=== PATIENT | female | born 1955 | race Caucasian/White ===

== ENCOUNTER → 2023-08-19 09:40 | Outpatient (REF) | payer MEDICARE, OTHER, SELFPAY ==
[2023-08-19 10:47] LABS: % Basophils 0.8 % (0-2); % Eosinophils 2.1 % (0-6); % Immature Granulocytes 0.2 % (0-0.5); % Lymphocytes 37.4 % (20.5-51.1); % Monocytes 7.4 % (1.7-9.3); % Neutrophils 52.1 % (42.2-75.2); Absolute Basophils 0.1 10^3/uL (0-0.2); Absolute Eosinophils 0.1 10^3/uL (0-0.7); Absolute Lymphocytes 2.5 10^3/uL (1.2-3.4); Absolute Monocytes 0.5 10^3/uL (0.1-0.6); Absolute Neutrophils 3.5 10^3/uL (1.4-6.5); Hematocrit 39.5 % (37.0-47.0); Hemoglobin 13.6 g/dL (12.0-16.0); Mean Corp Hgb Conc. 34.4 g/dL (33.0-37.0); Mean Corpuscular Hgb 28.8 pg (27.0-31.0); Mean Corpuscular Volume 83.5 fL (81.0-99.0); Mean Platelet Volume 8.7 fL (7.4-10.4); Nucleated Red Blood Cells % 0 %; Platelet Count 291 10^3/uL (130-400); Red Blood Cell Count 4.73 10^6/uL (4.20-5.40); White Blood Cell Count 6.7 10^3/uL (4.8-10.8)
[2023-08-19 11:28] LABS: ALT (SGPT) 16 U/L (0-35); AST (SGOT) 24 U/L (14-36); Albumin 4.3 g/dl (3.5-5.0); Alkaline Phosphatase 91 U/L (38-126); Blood Urea Nitrogen 13 mg/dl (7-17); Calcium 9.8 mg/dl (8.4-10.2); Carbon Dioxide 26 mmol/L (22-30); Chloride 105 mmol/L (98-107); Glucose 96 mg/dl (70-99); Potassium 4.3 mmol/L (3.5-5.1); Sodium 136 mmol/L (135-145); Total Bilirubin 1.2 mg/dl (0.2-1.3); eGFR > 60.00
[2023-08-19 11:38] LABS: Free T4 1.33 ng/dl (0.78-2.19)
[2023-08-19 11:52] LABS: TSH 0.79 uIU/ml (0.47-4.68)
== END ==
LOC: REG 09:40
PROVIDERS: ATTENDING PHYSICIAN Physician Assistant Medical; FAMILY PHYSICIAN Family Medicine
DX: R00.0 Tachycardia, unspecified (principal); R00.2 Palpitations; R53.83 Other fatigue
CPT/HCPCS: 36415; 80053; 84439; 84443; 85025

== ENCOUNTER → 2023-09-01 08:47 | Outpatient (REF) | payer MEDICARE, OTHER, SELFPAY | LOC: HWRCS 08:47 | PROVIDERS: ATTENDING PHYSICIAN Physician Assistant Medical; FAMILY PHYSICIAN Family Medicine | DX: R00.0 Tachycardia, unspecified (principal); R00.2 Palpitations | CPT/HCPCS: 93306 ==

== ENCOUNTER → 2023-09-22 08:38 | Outpatient (REF) | payer MEDICARE, OTHER, SELFPAY ==
[2023-09-22 09:44] LABS: Blood Urea Nitrogen 18 mg/dl (7-17); Carbon Dioxide 27 mmol/L (22-30); Chloride 104 mmol/L (98-107); Glucose 98 mg/dl (70-99); Potassium 4.6 mmol/L (3.5-5.1); Sodium 138 mmol/L (135-145); eGFR > 60.00
== END ==
LOC: REG 08:38
PROVIDERS: ATTENDING PHYSICIAN Nurse Practitioner; FAMILY PHYSICIAN Family Medicine
DX: M79.604 Pain in right leg (principal); M79.605 Pain in left leg; I10 Essential (primary) hypertension
CPT/HCPCS: 36415; 80048

== ENCOUNTER → 2023-10-06 10:48 | Outpatient (REF) | payer MEDICARE, OTHER, SELFPAY | LOC: RAD 10:48 | PROVIDERS: ATTENDING PHYSICIAN Nurse Practitioner; FAMILY PHYSICIAN Family Medicine | DX: M79.604 Pain in right leg (principal); M79.605 Pain in left leg; I10 Essential (primary) hypertension | CPT/HCPCS: 93922; 93925 ==

== ENCOUNTER → 2023-10-24 15:45 | Outpatient (REF) | payer MEDICARE, OTHER, SELFPAY | LOC: WDC 15:45 | PROVIDERS: ATTENDING PHYSICIAN Family Medicine | DX: Z12.31 Encounter for screening mammogram for malignant neoplasm of breast (principal) | CPT/HCPCS: 77063; 77067 ==

== ENCOUNTER 2023-12-09 18:08 | Emergency (ER) | payer MEDICARE, OTHER, SELFPAY ==
[2023-12-09] VITALS (7 sets, daily range): BP systolic 106–122; BP diastolic 60–73; PULSE 85–96; BMI 27.4
--- NOTE | 2023-12-09 18:26 | ED.GENMED ---
History of Present Illness
General
Chief Complaint: Fainting/Passed Out
Source: patient
Exam Limitations: none
Time Seen by Provider: 12/09/23 18:13
Travel History
Have you had any contact with someone who has COVID-19?: No
Do you have any symptoms of coronavirus? Fever > 100 degrees, chills, cough, shortness of breath, sore throat, loss of taste or smell, muscle aches, or headache?: No
History of Present Illness
History of Present Illness:
This is a 68 year old female that comes in by ambulance with c/o syncope. States that yesterday she forgot to take her medication. State that she went to an Estate sale with her friend. States that she only had coffee. States that she had a bagel
later and she was dropped off at home. states that she watched TV and then went to her Friends house later that night and stayed over night. States that she eat a burger and they decided to take their BP. States that this was around 7-8pm. States
that she her BP was elevated so she took her Lisinopril 20mg. States that she also had two 7-7 drinks. States that she went to bed at 11:30pm. Then today she was at a birthday republican and she was sitting on a bench outside when she started to not feel
well and passed out. States that her sister was right next to her Sister so she did not fall. States that she just felt weak. States that she did have slight chest pressure, she did vomit, slight headache and lightheaded. States that she did have a
little abd discomfort earlier. Denies any fever, chills, SOB, nausea, diarrhea. urinary burning.
Past History
Past History
ED Past Medical History: Cancer (Ovarian cancer), GERD, HTN, Hypercholesterolemia and Other (Barretts esophagus, Colitis, Diverticulosis, Emphysema)
ED Past Surgical History: Appendectomy and Gynecological (Hysterectomy, oophorectomy, and resection of ovarian tumor,)
Social History
Tobacco: Smoker
Alcohol: Occasional
Drug: None
Personal:
Living: alone
Review of Systems
Review of Systems
All Other Systems: ROS reviewed and negative except as documented in HPI and ROS
Constitutional: Reports no symptoms; Denies fever or chills
EENT: Reports no symptoms
Respiratory: Denies cough or trouble breathing
Cardiac: Reports chest pain
ABD/GI: Reports abdominal pain and vomiting; Denies nausea or diarrhea
: Reports no symptoms; Denies dysuria, frequency or urgency
Musculoskeletal: Reports no symptoms
Skin: Reports no symptoms
Neurological: Reports headache (light), weakness and other (Lightheaded)
Psychiatric: Reports no symptoms
Phy Exam
General Physical Exam
General Presentation: no apparent distress
General age: appears stated age
General Skin: warm and dry
General Habitus: normal
General Mental: alert
General Hydration: dry mucous membranes
ENT Exam
ENT Exam: TM's normal, pharynx normal and neck supple
Eye Exam
Eye Exam: EOMI
Cardiovascular Exam
Cardiovascular Exam: regular rate/rhythm, no edema, no murmur and normal peripheral pulses
Pulmonary Exam
Pulmonary Exam: lungs clear, no respiratory distress, no rales, chest non tender, no crackles, no rhonchi, no wheezing and no cough
Gastrointestinal Exam
Gastrointestinal Exam: normal bowel sounds, non tender, soft, no organomegaly, no pulsatile mass and non distended
Musculoskeletal Exam
Musculoskeletal Exam: full ROM and no edema
Skin Exam
Skin Exam: normal color, warm/dry, no rash and no petechia
Psychiatric Exam
Psychiatric Exam: normal mood/affect
Course
Orders/Labs/Results
Orders:
Orders
12/09/23 18:15
Electrocardiogram (*1) Urgent
Reason for Study: Syncope
EKG- Treatment ONCE
12/09/23 18:23
Complete Blood Count/With Diff Urgent
Comprehensive Metabolic Panel Urgent
Troponin I Urgent
12/09/23 18:25
Orthostatic VS- Treatment ONCE
0.9% Sodium Chloride 1000 ml [Nss] 1,000 ml IV BOLUS
CR Chest - 2 Views Urgent
Comment:
Reason For Exam: Chest pain syncope
12/09/23 18:26
CT Head W/o Iv Contrast Urgent
Comment:
Reason For Exam: weakness, headache
12/09/23 20:12
Electrocardiogram (*1) Urgent
Reason for Study: Syncope
Other Reason for Exam: Repeat with Troponin
EKG- Treatment ONCE
12/09/23 21:22
Troponin I Urgent
Urinalysis Reflex To Culture Urgent
Date Specimen was Collected: 12/09/23
Time Specimen was Collected: 21:13
Urine Microscopic Reflex Cult Urgent
Urine Culture Urgent
NINFA Source: U
Specimen Description:
Date Specimen was Collected: 12/09/23
Time Specimen was Collected: 21:13
Abnormal Lab Results
12/09/23 12/09/23
18:23 21:22
WBC 11.3 H 10^3/uL
(4.8-10.8)
Absolute Neuts (auto) 7.9 H 10^3/uL
(1.4-6.5)
Absolute Monos (auto) 0.8 H 10^3/uL
(0.1-0.6)
Carbon Dioxide 21 L mmol/L
(22-30)
Glucose 109 H mg/dl
(70-99)
Total Bilirubin 1.4 H mg/dl
(0.2-1.3)
Leukocyte Esterase Rfl 2+ A
(Negative)
Urine Bacteria (Reflex) Few A
(Negative)
12/09/23 18:23
12/09/23 18:23
WBC very slightly elevated. Glucose nonfasting. Total isabel very slightly elevated. Troponin <0.012
Second Troponin <0.012
Vital Signs
Initial and Last Documented VS:
Initial Vital Signs
Temp Pulse Resp BP Pulse Ox
97.6 F 74 17 106/73 100
12/09/23 18:12 12/09/23 18:12 12/09/23 18:12 12/09/23 18:12 12/09/23 18:12
Last Documented Vital Signs
Temp Pulse Resp BP Pulse Ox
97.6 F 84 14 109/70 100
12/09/23 18:12 12/09/23 21:15 12/09/23 21:15 12/09/23 21:00 12/09/23 18:16
MDM/Problems Addressed
Differential Diagnosis Includes:
Dehydration, Coronary syndrome,
MDM/Problems Addressed:
This is a 68 year old female that comes in with c/o syncope. States that she was outside at a republican and sitting on a bench when she passed out.
will check labs, CT head, Give IV fluids, Orthostatics.
Repeat ECG: rate 86, NSR, Normal axis. Normal QRS, negative for ischemia. Checked by Dr. Serrano.
Back into see patient.Explained that her Second Troponin was also negative. This was most likely some dehydrated and sitting out side. Your BP may have also dropped to low and cause Syncope. Please increase your water intake to 8-8oz glasses daily.
Follow up with the Family doctor. Return with any concerns.
Chronic conditions affecting care:
NA
Acute Exacerbation and/or Progression of Chronic Illness:
NA
*Radiology
Radiology exam reviewed: preliminary read by ED provider (Chest- negative for active disease. ) and radiology read reviewed (CT head-No acute intracranial abnormality. )
*Pulse Oximetry
Patient hypoxic: no
*EKG
Interpreted by ED Provider?: Yes
Heart Rate: 74
Rhythm: sinus
[place]: normal axis
Interval: normal interval
QRS Pattern: normal QRS
Ischemia: no ischemia (Checked by )
*Route Sales Trainee Interpretation
Rate: normal
Heart Rate: 74
Rhythm: sinus
*Critical Care Note
Total Time (30-74mins, 75-104mins- exclusive of procedures): Not Applicable
ED Attending Note
-
Portions of this chart may have been created with voice recognition software.� Occasional wrong word or��sound alike� substitutions may have occurred due to the inherent limitations of voice recognition software.
Discharge Plan
Departure
Patient Disposition: Home (Routine Discharge)
Date of Disposition: 12/09/23
Time of Disposition: 22:25
Patient with high blood pressure during this ER visit?: No
Condition: Good
Covid-19: Not Applicable
Discharge Problem:
Syncope
Instructions: Syncope (Fainting) (DC), Dehydration, Adult ED
Prescriptions:
No Action
pantoprazole 40 MG tablet,delayed release (DR/EC)
40 mg PO DAILY
lisinopril 10 MG tablet
20 mg PO DAILY
magnesium oxide 500 MG capsule
400 mg PO DAILY
cholecalciferol (vitamin D3) 2,000 UNITS tablet
50,000 units PO DAILY
Probiotic 1 EACH capsule
1 ea PO DAILY
cyclobenzaprine 10 mg tablet
10 mg PO TID PRN (Reason: muscle spasms)
atorvastatin 20 mg tablet
20 mg PO DAILY
Referrals:
UNKNOWN - PT DOES,NOT KNOW [Unknown Provider] -
Activity Restrictions/Additional Instructions:
As discussed, your both Troponin and ECG are normal. Your CT of the head is normal along with your chest x-ray. This may have been a combination of Dehydration and your BP getting to low. Please increase your water intake to 8-8oz glasses daily.
Follow up with the family doctor for recheck. IF YOU HAVE ANY OTHER CONCERNS PLEASE RETURN TO THE EMERGENCY ROOM.
Interventions
Interventions:
*Risk Screen - Suicide Last Done: 12/09/23 18:16
*General Assessment Last Done: 12/09/23 18:16
*Neglect/Abuse Screening Last Done: 12/09/23 18:16
ED- Fall Risk Assessment Last Done: 12/09/23 18:16
*ED COVID-19 Vaccine History Last Done: 12/09/23 18:14
ED- Cardiac Assessment Last Done: 12/09/23 18:16
ED- Neurological Assessment Last Done: 12/09/23 18:16
Discharge Date and Time
Print Language: KYRGYZ
[2023-12-09] MEDS: NSS 1000 IV (18:32)
[2023-12-09 18:41] LABS: % Basophils 0.2 % (0-2); % Eosinophils 0.4 % (0-6); % Immature Granulocytes 0.3 % (0-0.5); % Lymphocytes 21.7 % (20.5-51.1); % Monocytes 7.3 % (1.7-9.3); % Neutrophils 70.1 % (42.2-75.2); Absolute Eosinophils 0.1 10^3/uL (0-0.7); Absolute Lymphocytes 2.5 10^3/uL (1.2-3.4); Absolute Monocytes 0.8 10^3/uL (0.1-0.6); Absolute Neutrophils 7.9 10^3/uL (1.4-6.5); Hematocrit 37.8 % (37.0-47.0); Hemoglobin 13.4 g/dL (12.0-16.0); Mean Corp Hgb Conc. 35.4 g/dL (33.0-37.0); Mean Corpuscular Volume 81.8 fL (81.0-99.0); Mean Platelet Volume 8.7 fL (7.4-10.4); Nucleated Red Blood Cells % 0 %; Platelet Count 291 10^3/uL (130-400); Red Blood Cell Count 4.62 10^6/uL (4.20-5.40); Red Cell Dist. Width 13.3 % (11.5-14.5); White Blood Cell Count 11.3 10^3/uL (4.8-10.8)
[2023-12-09 18:58] LABS: ALT (SGPT) 13 U/L (0-35); AST (SGOT) 21 U/L (14-36); Albumin 3.9 g/dl (3.5-5.0); Alkaline Phosphatase 86 U/L (38-126); Blood Urea Nitrogen 15 mg/dl (7-17); Carbon Dioxide 21 mmol/L (22-30); Chloride 105 mmol/L (98-107); Estimated Creatinine Clearance 46 ml/min; Glucose 109 mg/dl (70-99); Potassium 3.8 mmol/L (3.5-5.1); Sodium 136 mmol/L (135-145); Total Bilirubin 1.4 mg/dl (0.2-1.3); Total Protein 6.4 g/dl (6.3-8.2); eGFR > 60.00
[2023-12-09 19:09] LABS: Troponin I < 0.012 ng/ml
[2023-12-09 21:37] LABS: Urine Albumin Negative (Neg - Trace); Urine Bilirubin Negative (Negative); Urine Character Clear (Clear); Urine Color Yellow; Urine Glucose Negative (Negative); Urine Ketone Negative (Negative); Urine Leukocyte 2+ (Negative); Urine Nitrite Negative (Negative); Urine Occult Blood Negative (Negative); Urine Specific Gravity 1.005 (<1.030); Urine Urobilinogen Negative (Neg - 1+)
[2023-12-09 21:45] LABS: Urine Red Blood Cell 0-2 /HPF (0-2); Urine Squamous Cell >20 /LPF (Few)
[2023-12-09 21:46] LABS: Urine Bacteria Few (Negative)
[2023-12-09 22:01] LABS: Troponin I < 0.012 ng/ml
== END 2023-12-09 22:45 | disposition home or self-care (01) ==
LOC: EMR 18:08
PROVIDERS: Clinical Nurse Specialist Family Health; EMERGENCY PHYSICIAN Emergency Medicine; FAMILY PHYSICIAN Family Medicine
DX: R55 Syncope and collapse (principal); K21.9 Gastro-esophageal reflux disease without esophagitis; I10 Essential (primary) hypertension; E78.00 Pure hypercholesterolemia, unspecified; J43.9 Emphysema, unspecified; F17.200 Nicotine dependence, unspecified, uncomplicated; Z85.43 Personal history of malignant neoplasm of ovary; Z87.19 Personal history of other diseases of the digestive system; Z90.49 Acquired absence of other specified parts of digestive tract; Z90.710 Acquired absence of both cervix and uterus; Z90.721 Acquired absence of ovaries, unilateral
CPT/HCPCS: 99284; 96360; 70450; 71046; 80053; 81003; 81015; 84484; 85025; 87086; 93005

== ENCOUNTER → 2023-12-25 08:24 | Outpatient (REF) | payer MEDICARE, OTHER, SELFPAY ==
[2023-12-25 09:45] LABS: % Basophils 0.8 % (0-2); % Eosinophils 1.6 % (0-6); % Immature Granulocytes 0.1 % (0-0.5); % Lymphocytes 44.9 % (20.5-51.1); % Monocytes 5.7 % (1.7-9.3); % Neutrophils 46.9 % (42.2-75.2); Absolute Basophils 0.1 10^3/uL (0-0.2); Absolute Eosinophils 0.1 10^3/uL (0-0.7); Absolute Lymphocytes 3.6 10^3/uL (1.2-3.4); Absolute Monocytes 0.5 10^3/uL (0.1-0.6); Absolute Neutrophils 3.7 10^3/uL (1.4-6.5); Hematocrit 39.3 % (37.0-47.0); Hemoglobin 13.6 g/dL (12.0-16.0); Mean Corp Hgb Conc. 34.6 g/dL (33.0-37.0); Mean Corpuscular Hgb 29.1 pg (27.0-31.0); Mean Platelet Volume 8.9 fL (7.4-10.4); Nucleated Red Blood Cells % 0 %; Platelet Count 356 10^3/uL (130-400); Red Blood Cell Count 4.68 10^6/uL (4.20-5.40); Red Cell Dist. Width 13.1 % (11.5-14.5); White Blood Cell Count 7.9 10^3/uL (4.8-10.8)
[2023-12-25 12:20] LABS: Blood Urea Nitrogen 13 mg/dl (7-17); Calcium 10.3 mg/dl (8.4-10.2); Carbon Dioxide 26 mmol/L (22-30); Chloride 104 mmol/L (98-107); Glucose 98 mg/dl (70-99); Potassium 4.4 mmol/L (3.5-5.1); Sodium 137 mmol/L (135-145); eGFR > 60.00
== END ==
LOC: REG 08:24
PROVIDERS: ATTENDING PHYSICIAN Specialist; FAMILY PHYSICIAN Family Medicine
DX: Z01.818 Encounter for other preprocedural examination (principal); E87.6 Hypokalemia
CPT/HCPCS: 36415; 80048; 85025

== ENCOUNTER 2023-12-29 11:05 | Day surgery (SDC) | payer MEDICARE, OTHER, SELFPAY ==
[2023-12-29] VITALS (10 sets, daily range): BP systolic 121–166; BP diastolic 77–108; BMI 26.5
[2023-12-29] MEDS: CELEBREX 200 MG PO (11:30)
[2023-12-29] MEDS: TYLENOL 1000 MG PO (11:30)
[2023-12-29] MEDS: NORMOSOL-R 1000 IV (11:31)
[2023-12-29] MEDS: DUONEB 3 ML INH (13:26)
== END 2023-12-29 14:50 | disposition home or self-care (01) ==
LOC: SDS 11:05
PROVIDERS: ATTENDING PHYSICIAN Specialist
DX: M25.562 Pain in left knee (principal); M94.262 Chondromalacia, left knee
CPT/HCPCS: 29881; 93005; 94640

== ENCOUNTER → 2024-03-15 08:02 | Outpatient (REF) | payer MEDICARE, OTHER, SELFPAY ==
[2024-03-15 10:08] LABS: Vitamin B12 386 pg/ml (239-931)
== END ==
LOC: REG 08:02
PROVIDERS: ATTENDING PHYSICIAN Family Medicine
DX: R53.83 Other fatigue (principal); D51.8 Other vitamin B12 deficiency anemias
CPT/HCPCS: 36415; 82607

== ENCOUNTER 2024-03-27 08:06 | Emergency (ER) | payer MEDICARE, OTHER, SELFPAY ==
[2024-03-27 08:07] VITALS: BP 161/104
--- NOTE | 2024-03-27 08:37 | ED.GENMED ---
History of Present Illness
General
Chief Complaint: DVT/Possible Blood Clot
Source: patient and family (daughter at bedside)
Exam Limitations: none
Time Seen by Provider: 03/27/24 08:17
Nursing documentation reviewed up to this point in time: agreed with
History of Present Illness
History of Present Illness:
68 yo female w h/o HTN, HLD, smoker, Villalta's Esophagus, GERD, ovarian CA 2011 stage one, surgically removed, no chemo, presents stating left leg pain from groin to calf. Had left knee meniscus repair on 12/29/23, has had pain behind left knee with
inability to bend the knee since, had follow up ortho visit 4 weeks ago and told it was arthritis. Has also had calf spasms intermittently since the surgery. The L groin pain started last week.
Pt also states she had a 20 minute episode of lightheadedness and nausea when she got a severe left calf spasm earlier this a.m. Feels 'a little' lightheaded now. Denies nausea.
Also states she has 'a little headache'
Pt also states pain right upper arm past month after lifting something heavy. She is right handed. 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
Past History
Past History
ED Past Medical History: Cancer (Ovarian cancer), GERD, HTN, Hypercholesterolemia and Other (Barretts esophagus, Colitis, Diverticulosis, Emphysema)
ED Past Surgical History: Appendectomy and Gynecological (Hysterectomy, oophorectomy, and resection of ovarian tumor,)
Social History
Tobacco: Smoker
Alcohol: Occasional
Drug: None
Personal:
Living: alone
Employment: Employed
Review of Systems
Review of Systems
Allergies reviewed?: Yes
All Other Systems: ROS reviewed and negative except as documented in HPI and ROS
Constitutional: Denies fever or fatigue
Respiratory: Denies cough or trouble breathing
Cardiac: Denies chest pain
ABD/GI: Denies abdominal pain, nausea, vomiting, diarrhea or anorexia
: Denies dysuria, frequency or difficulty voiding
Musculoskeletal: Reports other (left leg pain)
Skin: Reports no symptoms
Neurological: Reports headache ('a little') and other ('a little' lightheaded); Denies weakness or numbness
Phy Exam
Physical Exam
Physical Exam:
GENERAL: No acute distress. A&Ox3.
CONSTITUTIONAL: Afebrile.
EYES: PERRL, conjunctivae normal
ENMT: moist mucus membranes, Pharynx nl
RESPIRATORY: Regular respirations, nonlabored, lungs clear.
CARDIOVASCULAR: Regular rate and rhythm, no murmurs, no rubs. Pedal pulse normal, foot warm, brisk capillary refill.
GI: Soft, nontender, normal BS
MUSCULOSKELETAL: Right upper arm soft tissue tenderness to palpation, no bony tenderness, full ROM, no swelling. LLE without swelling, warmth or erythema. Moves with ease. Well perfused. No edema
LLE with mildly limited ROM of knee, flexes to 30 degree angle, no tenderness to hips, groin, mild tenderness about the knee, no swelling, redness or warmth. Distal n/v intact.
SKIN: Warm, dry, pink
PSYCH: Normal mood and affect. Well kept, interactive and appropriate
NEUROLOGIC: Awake, alert and oriented. No focal neurological deficits
Course
Orders/Labs/Results
Orders:
Orders
03/27/24 08:17
US Periph Venous LOWER Ext LT Urgent
Comment:
Reason For Exam: pain and spasms
03/27/24 08:36
Acetaminophen [Tylenol] 1,000 mg PO NOW STA
03/27/24 08:39
Complete Blood Count/With Diff Urgent
Comprehensive Metabolic Panel Urgent
Abnormal Lab Results
03/27/24
08:39
Glucose 106 H mg/dl
(70-99)
03/27/24 08:39
03/27/24 08:39
Vital Signs
Initial and Last Documented VS:
Initial Vital Signs
Temp Pulse Resp BP Pulse Ox
97.9 F 91 18 161/104 98
03/27/24 08:07 03/27/24 08:07 03/27/24 08:07 03/27/24 08:07 03/27/24 08:07
Last Documented Vital Signs
Temp Pulse Resp BP Pulse Ox
97.9 F 91 18 147/72 98
03/27/24 08:07 03/27/24 08:07 03/27/24 08:07 03/27/24 11:06 03/27/24 08:07
MDM/Problems Addressed
Differential Diagnosis Includes:
DVT, left knee post op pain, arthritis
Vaso vagal response to pain, Hypoglycemia, dehydration, anemia
MDM/Problems Addressed:
68 yo female w h/o HTN, HLD, smoker, Villalta's Esophagus, GERD, ovarian CA 2011 stage one, surgically removed, no chemo, presents stating left leg pain from groin to calf. Had left knee meniscus repair on 12/29/23, has had pain behind left knee with
inability to bend the knee since, had follow up ortho visit 4 weeks ago and told it was arthritis. Has also had calf spasms intermittently since the surgery. The L groin pain started last week.
Pt also states she had a 20 minute episode of lightheadedness and nausea when she got a severe left calf spasm earlier this a.m. Feels 'a little' lightheaded now. Denies nausea.
Also states she has 'a little headache' Concerned that her BP is high
Pt also states pain right upper arm past month after lifting something heavy. She is right handed. 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
Afebrile, NAD
CBC normal
CMP normal
US radiology report read: No DVT
No redness or swelling of LLE, adequate ROM, no bony tenderness, no indication for xray. Pt requesting MRI of the knee. Referred to her PCP or Ortho doctor for this
11:15 a.m.
BP 147/72
Pt ambulated out with normal gait at discharge
Chronic conditions affecting care: HTN and Other (Recent left knee surgery)
*Critical Care Note
Total Time (30-74mins, 75-104mins- exclusive of procedures): Not Applicable
ED Attending Note
-
Portions of this chart may have been created with voice recognition software.� Occasional wrong word or��sound alike� substitutions may have occurred due to the inherent limitations of voice recognition software.
Discharge Plan
Departure
Patient Disposition: Home (Routine Discharge)
Date of Disposition: 03/27/24
Time of Disposition: 10:58
Patient with high blood pressure during this ER visit?: No
Condition: Good
Discharge Problem:
Arthralgia of left knee, Muscle spasm of left calf
Instructions: Knee Pain ED
Prescriptions:
No Action
pantoprazole 40 MG tablet,delayed release (DR/EC)
40 mg PO DAILY
magnesium oxide 500 MG capsule
400 mg PO DAILY
cholecalciferol (vitamin D3) 2,000 UNITS tablet
2,000 units PO DAILY
Probiotic 1 EACH capsule
1 ea PO DAILY
cyclobenzaprine 10 mg tablet
10 mg PO TID PRN (Reason: muscle spasms)
atorvastatin 20 mg tablet
20 mg PO DAILY
lisinopril 5 mg Tablet
5 mg PO DAILY
Referrals:
Nara Garza MD [Family Provider] - As needed
Activity Restrictions/Additional Instructions:
As we discussed, your Ultrasound shows no DVT or Lester's cyst.
Tylenol or Ibuprofen as needed for pain, follow up with your primary doctor or orthopedic doctor and let them know you would like an MRI.
Interventions
Interventions:
*Risk Screen - Suicide Last Done: 03/27/24 08:50
*General Assessment Last Done: 03/27/24 08:50
*Neglect/Abuse Screening Last Done: 03/27/24 08:50
ED- Fall Risk Assessment Last Done: 03/27/24 08:50
*ED COVID-19 Vaccine History Last Done: 03/27/24 08:50
*Nursing Disposition Last Done: 03/27/24 11:09
ED- Cardiac Assessment Last Done: 03/27/24 08:50
ED- Pulmonary Assessment Last Done: 03/27/24 08:50
ED-Skin Assessment Last Done: 03/27/24 08:50
Discharge Date and Time
Discharge Date/Time: 03/27/24 11:11
Print Language: ALBAN[place]
[2024-03-27] MEDS: TYLENOL 1000 MG PO (08:39)
[2024-03-27 08:50] VITALS: BP 145/92
[2024-03-27 08:56] LABS: % Basophils 0.4 % (0-2); % Eosinophils 1.6 % (0-6); % Immature Granulocytes 0.2 % (0-0.5); % Lymphocytes 29.4 % (20.5-51.1); % Neutrophils 61.4 % (42.2-75.2); Absolute Eosinophils 0.1 10^3/uL (0-0.7); Absolute Lymphocytes 2.4 10^3/uL (1.2-3.4); Absolute Monocytes 0.6 10^3/uL (0.1-0.6); Absolute Neutrophils 5.1 10^3/uL (1.4-6.5); Hematocrit 37.5 % (37.0-47.0); Hemoglobin 13.1 g/dL (12.0-16.0); Mean Corp Hgb Conc. 34.9 g/dL (33.0-37.0); Mean Corpuscular Hgb 28.7 pg (27.0-31.0); Mean Corpuscular Volume 82.1 fL (81.0-99.0); Mean Platelet Volume 8.7 fL (7.4-10.4); Nucleated Red Blood Cells % 0 %; Platelet Count 294 10^3/uL (130-400); Red Blood Cell Count 4.57 10^6/uL (4.20-5.40); Red Cell Dist. Width 13.2 % (11.5-14.5); White Blood Cell Count 8.2 10^3/uL (4.8-10.8)
[2024-03-27 09:05] LABS: ALT (SGPT) 15 U/L (0-35); AST (SGOT) 23 U/L (14-36); Albumin 4.1 g/dl (3.5-5.0); Alkaline Phosphatase 83 U/L (38-126); Blood Urea Nitrogen 14 mg/dl (7-17); Calcium 10.2 mg/dl (8.4-10.2); Carbon Dioxide 23 mmol/L (22-30); Chloride 107 mmol/L (98-107); Glucose 106 mg/dl (70-99); Potassium 4.3 mmol/L (3.5-5.1); Sodium 140 mmol/L (135-145); Total Bilirubin 1.1 mg/dl (0.2-1.3); Total Protein 6.5 g/dl (6.3-8.2); eGFR > 60.00
[2024-03-27 11:06] VITALS: BP 147/72
== END 2024-03-27 11:11 | disposition home or self-care (01) ==
LOC: EMR 08:06
PROVIDERS: Registered Nurse; EMERGENCY PHYSICIAN Emergency Medicine; FAMILY PHYSICIAN Family Medicine
DX: M62.838 Other muscle spasm (principal); M25.562 Pain in left knee; R10.32 Left lower quadrant pain; R42 Dizziness and giddiness; R11.0 Nausea; R51.9 Headache, unspecified; M79.621 Pain in right upper arm; I10 Essential (primary) hypertension; M17.12 Unilateral primary osteoarthritis, left knee; K21.9 Gastro-esophageal reflux disease without esophagitis; E78.00 Pure hypercholesterolemia, unspecified; K22.70 Barrett's esophagus without dysplasia; J43.9 Emphysema, unspecified; K57.30 Diverticulosis of large intestine without perforation or abscess without bleeding; K52.9 Noninfective gastroenteritis and colitis, unspecified; F17.200 Nicotine dependence, unspecified, uncomplicated; Z85.43 Personal history of malignant neoplasm of ovary; Z98.890 Other specified postprocedural states; Z88.1 Allergy status to other antibiotic agents; Z91.041 Radiographic dye allergy status
CPT/HCPCS: 99284; 72110; 73502; 80053; 85025; 93971

== ENCOUNTER 2024-05-01 11:51 | Emergency (ER) | payer MEDICARE, OTHER, SELFPAY ==
[2024-05-01 12:06] VITALS: BP 159/104
[2024-05-01 12:32] LABS: % Basophils 0.3 % (0-2); % Immature Granulocytes 0.2 % (0-0.5); % Lymphocytes 28.1 % (20.5-51.1); % Monocytes 5.3 % (1.7-9.3); % Neutrophils 65.1 % (42.2-75.2); Absolute Eosinophils 0.1 10^3/uL (0-0.7); Absolute Lymphocytes 2.5 10^3/uL (1.2-3.4); Absolute Monocytes 0.5 10^3/uL (0.1-0.6); Absolute Neutrophils 5.7 10^3/uL (1.4-6.5); Hematocrit 41.6 % (37.0-47.0); Hemoglobin 14.6 g/dL (12.0-16.0); Mean Corp Hgb Conc. 35.1 g/dL (33.0-37.0); Mean Corpuscular Hgb 29.6 pg (27.0-31.0); Mean Corpuscular Volume 84.2 fL (81.0-99.0); Nucleated Red Blood Cells % 0 %; Platelet Count 308 10^3/uL (130-400); Red Blood Cell Count 4.94 10^6/uL (4.20-5.40); Red Cell Dist. Width 12.9 % (11.5-14.5); White Blood Cell Count 8.8 10^3/uL (4.8-10.8)
[2024-05-01 12:43] LABS: ALT (SGPT) 17 U/L (0-35); AST (SGOT) 23 U/L (14-36); Albumin 4.7 g/dl (3.5-5.0); Alkaline Phosphatase 86 U/L (38-126); Blood Urea Nitrogen 10 mg/dl (7-17); Calcium 10.4 mg/dl (8.4-10.2); Carbon Dioxide 20 mmol/L (22-30); Chloride 107 mmol/L (98-107); Glucose 104 mg/dl (70-99); Potassium 4.1 mmol/L (3.5-5.1); Sodium 142 mmol/L (135-145); Total Bilirubin 0.7 mg/dl (0.2-1.3); Total Protein 7.3 g/dl (6.3-8.2); eGFR > 60.00
[2024-05-01 13:15] LABS: Lipase 85 U/L (23-300)
[2024-05-01 14:18] VITALS: BP 166/99
--- NOTE | 2024-05-01 16:49 | ED.GENMED ---
History of Present Illness
General
Chief Complaint: Abdominal Symptoms
Time Seen by Provider: 05/01/24 15:57
History of Present Illness
History of Present Illness:
68-year-old female presents to the emergency department for evaluation of constipation for the past 2 weeks. Has had small caliber bowel movements but essentially no large stools during that time. She has rectal discomfort at this point. Saw her
primary care physician today who felt there may be a rectal prolapse or rectocele and recommended ED evaluation. She has used fleets enemas as well as fiber supplements without relief.
Past History
Past History
ED Past Medical History: Cancer (Ovarian cancer), GERD, HTN, Hypercholesterolemia and Other (Barretts esophagus, Colitis, Diverticulosis, Emphysema)
ED Past Surgical History: Appendectomy and Gynecological (Hysterectomy, oophorectomy, and resection of ovarian tumor,)
Social History
Tobacco: Smoker
Alcohol: Occasional
Drug: None
Personal:
Living: alone
Employment: Employed
Review of Systems
Review of Systems
Allergies reviewed?: Yes
All Other Systems: ROS reviewed and negative except as documented in HPI and ROS
Phy Exam
Physical Exam
Physical Exam:
GEN: Well appearing, NAD, WDWN
HEENT: Oral mucosa moist, no scleral icterus
Cardiac: Regular rate
Lung: No respiratory distress, no tachypnea
Rectal: Small soft protrusion from the anterior/inferior anal verge extending toward the vagina most likely representing a rectocele, no prolapsed rectal tissue. Firm stool in the rectal vault, no thrombosed hemorrhoids
MSK: No gross deformity or injuries
Skin: Good color, no pallor or jaundice, no rashes
Neuro: AO x3, moves all extremities freely
Psych: Calm, cooperative
Course
Orders/Labs/Results
Orders:
Orders
05/01/24 12:18
CMP [Comprehensive Metabolic Panel] Urgent
Complete Blood Count/With Diff Urgent
Lipase Urgent
05/01/24 16:19
Enema- Treatment ONCE
Type: Milk of Molasses
05/01/24 17:47
Magnesium Citrate [Citroma] 300 ml PO ONCE ONE
Abnormal Lab Results
05/01/24
12:18
Carbon Dioxide 20 L mmol/L
(22-30)
Glucose 104 H mg/dl
(70-99)
Calcium 10.4 H mg/dl
(8.4-10.2)
05/01/24 12:18
05/01/24 12:18
Vital Signs
Initial and Last Documented VS:
Initial Vital Signs
Temp Pulse Resp BP Pulse Ox
98.1 F 100 16 159/104 99
05/01/24 12:06 05/01/24 12:06 05/01/24 12:06 05/01/24 12:06 05/01/24 12:06
Last Documented Vital Signs
Temp Pulse Resp BP Pulse Ox
98.3 F 109 16 166/99 100
05/01/24 14:18 05/01/24 14:18 05/01/24 12:06 05/01/24 14:18 05/01/24 14:18
MDM/Problems Addressed
MDM/Problems Addressed:
Patient did have improvement with enema given in the ED, no indication for imaging. Will provide magnesium citrate for ongoing relief, recommend colorectal surgery follow-up regarding the rectocele
*Critical Care Note
Total Time (30-74mins, 75-104mins- exclusive of procedures): Not Applicable
ED Attending Note
-
Portions of this chart may have been created with voice recognition software.� Occasional wrong word or��sound alike� substitutions may have occurred due to the inherent limitations of voice recognition software.
Discharge Plan
Departure
Patient Disposition: Home (Routine Discharge)
Date of Disposition: 05/01/24
Time of Disposition: 17:48
Patient with high blood pressure during this ER visit?: No
Discharge Problem:
Acute constipation
Instructions: Constipation, Adult (DC)
Prescriptions:
No Action
pantoprazole 40 MG tablet,delayed release (DR/EC)
40 mg PO DAILY
magnesium oxide 500 MG capsule
400 mg PO DAILY
cholecalciferol (vitamin D3) 2,000 UNITS tablet
2,000 units PO DAILY
Probiotic 1 EACH capsule
1 ea PO DAILY
cyclobenzaprine 10 mg tablet
10 mg PO TID PRN (Reason: muscle spasms)
atorvastatin 20 mg tablet
20 mg PO DAILY
lisinopril 5 mg Tablet
5 mg PO DAILY
Referrals:
David Burnham MD [Active] -
Nara Garza MD [Family Provider] -
Activity Restrictions/Additional Instructions:
Take the magnesium citrate when you get home to improve your constipation
Interventions
Interventions:
*Risk Screen - Suicide Last Done: 05/01/24 12:06
*General Assessment Last Done: 05/01/24 12:06
*Neglect/Abuse Screening Last Done: 05/01/24 12:06
ED- Fall Risk Assessment Last Done: 05/01/24 17:17
*ED COVID-19 Vaccine History Last Done: 05/01/24 12:06
*Nursing Disposition Last Done: 05/01/24 18:06
[id number]-Kilzzm-[id number] Assessment Last Done: 05/01/24 17:17
Discharge Date and Time
Discharge Date/Time: 05/01/24 18:05
Print Language: NIUEAN
--- NOTE | 2024-05-01 17:40 | EDRN ---
Patient tolerated milk and molasses enema. Patient stated that she had a moderate amount of stool.
[2024-05-01] MEDS: CITROMA 300 ML PO (17:59)
--- NOTE | 2024-05-01 18:04 | EDRN ---
Discharge instructions given to patient by Jeff Ventura PA-C. Unable to obtain repeat vital signs.
== END 2024-05-01 18:05 | disposition home or self-care (01) ==
LOC: EMR 11:51
PROVIDERS: Emergency Medicine; EMERGENCY PHYSICIAN Emergency Medicine; FAMILY PHYSICIAN Family Medicine
DX: K59.09 Other constipation (principal); K21.9 Gastro-esophageal reflux disease without esophagitis; I10 Essential (primary) hypertension; E78.00 Pure hypercholesterolemia, unspecified; J43.9 Emphysema, unspecified; F17.200 Nicotine dependence, unspecified, uncomplicated; Z85.43 Personal history of malignant neoplasm of ovary; Z87.19 Personal history of other diseases of the digestive system; Z90.49 Acquired absence of other specified parts of digestive tract; Z90.710 Acquired absence of both cervix and uterus; Z90.721 Acquired absence of ovaries, unilateral
CPT/HCPCS: 99283; 80053; 83690; 85025

== ENCOUNTER → 2024-06-20 10:54 | Outpatient (REF) | payer MEDICARE, OTHER, SELFPAY | LOC: HWRAD 10:54 | PROVIDERS: ATTENDING PHYSICIAN Family Medicine | DX: F17.210 Nicotine dependence, cigarettes, uncomplicated (principal) | CPT/HCPCS: 71271 ==

== ENCOUNTER → 2024-07-04 09:31 | Outpatient (REF) | payer MEDICARE, OTHER, SELFPAY | LOC: RAD 09:31 | PROVIDERS: ATTENDING PHYSICIAN Physician Assistant; FAMILY PHYSICIAN Family Medicine | DX: N81.6 Rectocele (principal); K59.00 Constipation, unspecified | CPT/HCPCS: 74270 ==

== ENCOUNTER → 2024-10-01 10:36 | Outpatient (REF) | payer MEDICARE, OTHER, SELFPAY | LOC: RCS 10:36 | PROVIDERS: ATTENDING PHYSICIAN Internal Medicine; FAMILY PHYSICIAN Family Medicine | DX: I10 Essential (primary) hypertension (principal); R55 Syncope and collapse | CPT/HCPCS: 93017 ==

== ENCOUNTER → 2024-10-02 15:05 | Outpatient (REF) | payer MEDICARE, OTHER, SELFPAY ==
[2024-10-02 15:25] LABS: Urine Albumin 1+ (Neg - Trace); Urine Bilirubin Negative (Negative); Urine Character Clear (Clear); Urine Color Yellow; Urine Glucose Negative (Negative); Urine Ketone Negative (Negative); Urine Leukocyte 3+ (Negative); Urine Nitrite Negative (Negative); Urine Occult Blood 4+ (Negative); Urine Urobilinogen Negative (Neg - 1+)
[2024-10-02 16:19] LABS: Urine Squamous Cell >30 /LPF (Few); Urine White Cell >100 /HPF (0-5)
[2024-10-02 16:20] LABS: Urine Bacteria Many (Negative)
[2024-10-02 16:21] LABS: Urine Mucus Few
== END ==
LOC: REG 15:05
PROVIDERS: ATTENDING PHYSICIAN Obstetrics & Gynecology; FAMILY PHYSICIAN Family Medicine
DX: N39.0 Urinary tract infection, site not specified (principal)
CPT/HCPCS: 81003; 81015; 87077; 87086

== ENCOUNTER → 2024-10-08 08:17 | Outpatient (REF) | payer MEDICARE, OTHER, SELFPAY | LOC: RCS 08:17 | PROVIDERS: ATTENDING PHYSICIAN Internal Medicine; FAMILY PHYSICIAN Family Medicine | DX: I10 Essential (primary) hypertension (principal); R55 Syncope and collapse | CPT/HCPCS: 93306 ==

== ENCOUNTER → 2024-10-26 08:02 | Outpatient (REF) | payer MEDICARE, OTHER, SELFPAY ==
[2024-10-26 09:22] LABS: % Basophils 0.6 % (0-2); % Eosinophils 3.3 % (0-6); % Immature Granulocytes 0.3 % (0-0.5); % Lymphocytes 49.4 % (20.5-51.1); % Neutrophils 38.4 % (42.2-75.2); Absolute Eosinophils 0.2 10^3/uL (0-0.7); Absolute Lymphocytes 3.1 10^3/uL (1.2-3.4); Absolute Monocytes 0.5 10^3/uL (0.1-0.6); Absolute Neutrophils 2.4 10^3/uL (1.4-6.5); Hemoglobin 13.8 g/dL (12.0-16.0); Mean Corp Hgb Conc. 33.7 g/dL (33.0-37.0); Mean Corpuscular Hgb 28.8 pg (27.0-31.0); Mean Corpuscular Volume 85.4 fL (81.0-99.0); Nucleated Red Blood Cells % 0 %; Platelet Count 322 10^3/uL (130-400); Red Cell Dist. Width 13.4 % (11.5-14.5); White Blood Cell Count 6.4 10^3/uL (4.8-10.8)
[2024-10-26 09:32] LABS: ALT (SGPT) 17 U/L (0-35); AST (SGOT) 23 U/L (14-36); Albumin 4.5 g/dl (3.5-5.0); Alkaline Phosphatase 84 U/L (38-126); Blood Urea Nitrogen 15 mg/dl (7-17); Calcium 10.2 mg/dl (8.4-10.2); Carbon Dioxide 28 mmol/L (22-30); Chloride 105 mmol/L (98-107); Glucose 104 mg/dl (70-99); HDL Cholesterol 92 mg/dl; LDL Cholesterol, Calculated 46 mg/dl; Potassium 4.5 mmol/L (3.5-5.1); Sodium 142 mmol/L (135-145); Total Bilirubin 1.2 mg/dl (0.2-1.3); Total Cholesterol 161 mg/dl (50-199); Triglyceride 116 mg/dl (10-149); Very Low Density Lipoprotein 23 mg/dl (0-30); eGFR > 60.00
[2024-10-26 10:01] LABS: TSH 2.51 uIU/ml (0.47-4.68)
[2024-10-26 11:40] LABS: Glycohemoglobin (HgbA1c) 5.8 % (4.0-5.6)
== END ==
LOC: REG 08:02
PROVIDERS: ATTENDING PHYSICIAN Family Medicine
DX: I10 Essential (primary) hypertension (principal); R53.83 Other fatigue; R73.09 Other abnormal glucose; E78.89 Other lipoprotein metabolism disorders; R73.03 Prediabetes
CPT/HCPCS: 36415; 80053; 80061; 83036; 84443; 85025

== ENCOUNTER → 2024-10-29 16:12 | Outpatient (REF) | payer MEDICARE, OTHER, SELFPAY | LOC: WDC 16:12 | PROVIDERS: ATTENDING PHYSICIAN Family Medicine | DX: Z12.31 Encounter for screening mammogram for malignant neoplasm of breast (principal) | CPT/HCPCS: 77063; 77067 ==

== ENCOUNTER → 2024-12-10 09:49 | Outpatient (REF) | payer MEDICARE, OTHER, SELFPAY | LOC: SDSPAT 09:49 | PROVIDERS: ATTENDING PHYSICIAN Obstetrics & Gynecology; FAMILY PHYSICIAN Family Medicine; OTHER PHYSICIAN Surgery | DX: N81.6 Rectocele (principal) | CPT/HCPCS: 36415; 86850; 86900; 86901; 93005 ==

== ENCOUNTER 2024-12-24 05:49 | Day surgery (SDC) | payer MEDICARE, OTHER, SELFPAY ==
[2024-12-10 13:50] VITALS: BMI 24.8
[2024-12-24] VITALS (14 sets, daily range): BP systolic 108–160; BP diastolic 60–92; BMI 24.8
[2024-12-24] MEDS: Pyridium 200 MG PO (06:31)
[2024-12-24] MEDS: NORMOSOL-R/PLASMALYTE-A 1000 IV (06:31)
[2024-12-24] MEDS: HEPARIN 5000 UNITS SC (06:32)
[2024-12-24] MEDS: DILAUDID 0.25 MG IV ×2 (10:09→10:27)
[2024-12-24] MEDS: DUONEB 3 ML INH (10:14)
--- NOTE | 2024-12-24 10:33 | SUR.PHASEI ---
Pt received duo-neb. States she can't breath. Dr. Genao at bedside. Will order CXR. Sat's 99-100%on RA. Will continue to monitor
== END 2024-12-24 13:10 | disposition home or self-care (01) ==
LOC: SDS 05:49
PROVIDERS: ATTENDING PHYSICIAN Obstetrics & Gynecology; FAMILY PHYSICIAN Family Medicine
DX: N99.3 Prolapse of vaginal vault after hysterectomy (principal); K62.3 Rectal prolapse; N39.3 Stress incontinence (female) (male); N95.8 Other specified menopausal and perimenopausal disorders; Y83.8 Other surgical procedures as the cause of abnormal reaction of the patient, or of later complication, without mention of misadventure at the time of the procedure; N36.41 Hypermobility of urethra
CPT/HCPCS: 57425; 57250; 71045; 86900; 86901; 94640; C1713; C1763

== ENCOUNTER 2025-04-25 06:15 | Day surgery (SDC) | payer MEDICARE, OTHER, SELFPAY | END 2025-04-25 15:02 | disposition home or self-care (01) | LOC: GI 06:15 | PROVIDERS: ATTENDING PHYSICIAN Internal Medicine Gastroenterology | DX: K44.9 Diaphragmatic hernia without obstruction or gangrene (principal); K22.70 Barrett's esophagus without dysplasia | CPT/HCPCS: 43239; 88305 ==

== ENCOUNTER → 2025-06-24 10:54 | Outpatient (REF) | payer MEDICARE, OTHER, SELFPAY | LOC: HWRAD 10:54 | PROVIDERS: ATTENDING PHYSICIAN Family Medicine | DX: F17.210 Nicotine dependence, cigarettes, uncomplicated (principal) | CPT/HCPCS: 71271 ==